=== PATIENT | female | born 1970 | race American Indian/Alaskan Native ===

== ENCOUNTER 2020-08-20 15:17 | Emergency (ER) | payer OTHER ==
[2020-08-20] MEDS ORDERED: ONDANSETRON 4 MG/2 ML INJ IV ONE (18:08)
[2020-08-20] MEDS ORDERED: FAMOTIDINE 20 MG/2 ML INJ IV ONE (18:08)
[2020-08-20] MEDS ORDERED: SODIUM CHLORIDE 0.9% 1000 ML 1,000 ML IV ONE (18:08)
[2020-08-20 18:52] LABS: Hematocrit 37.2 % (30.3-42.9); Hemoglobin 12.3 gm/dl (10.1-14.3); Mean Corpuscular HGB Conc 33 % (30-34); Mean Corpuscular Volume 83 fl (79-97); Platelet Count 250 K/mm3 (140-440); Red Blood Count 4.48 M/mm3 (3.65-5.03)
[2020-08-20 18:56] LABS: Red Cell Distribution Width 24.8 % (13.2-15.2)
[2020-08-20 19:10] LABS: Alanine Aminotransferase 12 units/L (7-56); Albumin 3.7 g/dL (3.9-5); Blood Urea Nitrogen 11 mg/dL (7-17); Calcium 8.9 mg/dL (8.4-10.2); Hemolysis Index 27
[2020-08-20 19:14] LABS: BUN/Creatinine Ratio 16
[2020-08-20 20:40] LABS: Bacteria,Urine 1+ /HPF (Negative); Bilirubin,Urine NEG (Negative); Blood,Urine NEG (Negative); Color,Urine Yellow (Yellow); Mucus,Urine FEW /HPF; Protein,Urine <15 mg/dL mg/dL (Negative); Urobilinogen,Urine < 2.0 mg/dL (<2.0)
[2020-08-20 20:53] LABS: Total Cells Counted 100
[2020-08-20 20:54] LABS: Anisocytosis 2+
[2020-08-20 20:55] LABS: Large Platelets Rare; Platelet Estimate Consistent w Auto
--- NOTE | 2020-08-20 22:21 | Emergency Department Report ---
ED N/V/D HPI - General Chief complaint: Nausea/Vomiting/Diarrhea Stated complaint: DIARRHEA/VOMITING PUI?: No Source: patient Mode of arrival: Ambulatory Limitations: No Limitations - History of Present Illness Initial comments: Patient is a 49-year-old -Armenian female with no past medical history presents to the ED with complaint of acute onset persistent intermittent nausea and vomiting with diarrhea for the last 12 hours, worse in the last 8 hours. Patient states that she has not been able to keep anything down since the onset of the symptoms over 12 hours ago. Patient states that the last meal she consumed was 24 hours ago and it consisted of food that had been laying in the fridge for a few days. Patient states that she tried to drink fluids but was unable to keep anything down because of persistent intermittent nausea and vomi ting and diarrhea. Patient states that she has had multiple episodes of diarrhea and up to 4 or 5 episodes of nausea and vomiting. Patient denies abdominal pain, dizziness, syncope, lightheadedness, chest pain, shortness of breath, dysuria, urinary frequency and urgency, vaginal bleeding, hematemesis, hematochezia, headache, fever, chills, back pain or cough. MD complaint: nausea, vomiting, diarrhea -: Sudden, hour(s) (12) Description of Vomiting: food contents, watery Description of Diarrhea: water Associated Abdominal Pain: No Location: diffuse Radiation: none Severity: moderate Pain Scale: 0 Quality: dull Consistency: intermittent Improves with: none Worsens with: eating, vomiting Context: possible food poisoning Associated Symptoms: denies other symptoms, myalgias, loss of appetite, malaise, nausea/vomiting. denies: chest pain, cough, diaphoresis, fever/chills, headaches, rash, dysuria, shortness of breath, syncope, weakness, other - Related Data Previous Rx's Medication Instructions Recorded Last Taken Type Dicyclomine [Bentyl] 20 mg PO Q6H PRN #30 tablet 08/20/20 Unknown Rx Famotidine [Pepcid] 20 mg PO BID #30 tablet 08/20/20 Unknown Rx Ondansetron [Zofran Odt] 4 mg PO Q8HR PRN #20 tab.rapdis 08/20/20 Unknown Rx Allergies Allergy/AdvReac Type Severity Reaction Status Date / Time No Known Allergies Allergy Unverified 10/26/15 20:53 ED Review of Systems ROS: Stated complaint: DIARRHEA/VOMITING Other details as noted in HPI Constitutional: denies: chills, fever Eyes: denies: eye pain, eye discharge, vision change ENT: denies: ear pain, throat pain Respiratory: denies: cough, shortness of breath, wheezing Cardiovascular: denies: chest pain, palpitations Endocrine: no symptoms reported Gastrointestinal: nausea, vomiting, diarrhea. denies: abdominal pain Genitourinary: denies: urgency, dysuria, discharge Musculoskeletal: denies: back pain, joint swelling, arthralgia Skin: denies: rash, lesions Neurological: denies: headache, weakness, paresthesias Psychiatric: denies: anxiety, depression Hematological/Lymphatic: denies: easy bleeding, easy bruising ED Past Medical Hx - Past Medical History Previous Medical History?: No Additional medical history: gallstones - Surgical History Additional Surgical History: GB - Social History Smoking Status: Never Smoker Substance Use Type: None - Medications Home Medications: Home Medications Medication Instructions Recorded Confirmed Last Taken Type Dicyclomine [Bentyl] 20 mg PO Q6H PRN #30 tablet 08/20/20 Unknown Rx Famotidine [Pepcid] 20 mg PO BID #30 tablet 08/20/20 Unknown Rx Ondansetron [Zofran Odt] 4 mg PO Q8HR PRN #20 tab.rapdis 08/20/20 Unknown Rx ED Physical Exam - General Limitations: No Limitations General appearance: alert, in no apparent distress - Head Head exam: Present: atraumatic, normocephalic, normal inspection - Eye Eye exam: Present: normal appearance, PERRL, EOMI Pupils: Present: normal accommodation - ENT ENT exam: Present: normal exam, normal orophraynx, mucous membranes moist, TM's normal bilaterally, normal external ear exam - Neck Neck exam: Present: normal inspection, full ROM - Respiratory Respiratory exam: Present: normal lung sounds bilaterally. Absent: respiratory distress, wheezes, rales, chest wall tenderness, decreased breath sounds - Cardiovascular Cardiovascular Exam: Present: regular rate, normal rhythm, normal heart sounds. Absent: systolic murmur, diastolic murmur, rubs, gallop - GI/Abdominal GI/Abdominal exam: Present: soft, normal bowel sounds, hyperactive bowel sounds. Absent: tenderness, guarding - Extremities Exam Extremities exam: Present: normal inspection, full ROM, normal capillary refill - Back Exam Back exam: Present: normal inspection, full ROM. Absent: tenderness, CVA tenderness (R), CVA tenderness (L), muscle spasm, paraspinal tenderness, vertebral tenderness, rash noted - Neurological Exam Neurological exam: Present: alert, oriented X3, CN II-XII intact, normal gait, reflexes normal - Psychiatric Psychiatric exam: Present: normal affect, normal mood - Skin Skin exam: Present: warm, dry, intact, normal color. Absent: rash ED Course Vital Signs 08/20/20 15:52 Temperature 98.8 F Pulse Rate 87 Respiratory 17 Rate Blood Pressure 175/93 [Right] O2 Sat by Pulse 97 Oximetry ED Medical Decision Making - Lab Data Result diagrams: 08/20/20 18:10 08/20/20 18:10 - Medical Decision Making This is a 49-year-old -Armenian female with no past medical history presents to the ED with complaint of acute onset persistent intermittent nausea and vomiting with diarrhea for the last 12 hours, worse in the last 8 hours. Patient states that she has not been able to keep anything down since the onset of the symptoms over 12 hours ago. Patient states that the last meal she consumed was 24 hours ago and it consisted of food that had been laying in the fridge for a few days. Patient states that she tried to drink fluids but was unable to keep anything down because of persistent intermittent nausea and vomiting and diarrhea. Patient states that she has had multiple episodes of d iarrhea and up to 4 or 5 episodes of nausea and vomiting. In the ED, patient is alert and oriented x3 and is not in distress. Lab test results were reviewed and are all nonactionable except for mild acute hyponatremia of 131 mmol/L and mild urinary tract infection characterized by 1+ bacteria, >10 WBCs and large leukocyte esterase levels in urinalysis. Patient was treated in the ED with antiemetics, antacids and also given normal saline 1 L IV bolus x1. On reevaluation, patient's nausea and vomiting resolved in the ED, patient has not had any nausea or vomiting or diarrhea while in the ED. Patient is hemodynamically stable, and based on history and physical exam findings as well as lab test results, patient's symptoms are likely due to a viral gastroenteritis versus GERD. Patient was therefore discharged home on medications and advised to follow-up with her primary care physician in 5 to 7 days for reevaluation. Patient was also advised to maintain a clear liquid diet for 12 to 24 hours while taking medications for nausea and vomiting. Patient was otherwise advised return to the ED immediately if symptoms get worse. - Differential Diagnosis Gastroenteritis; dehydration; UTI; GERD; gastritis; Critical care attestation.: If time is entered above; I have spent that time in minutes in the direct care of this critically ill patient, excluding procedure time. ED Disposition Clinical Impression: Viral gastroenteritis, Nausea, vomiting and diarrhea, Acute hyponatremia, Acute urinary tract infection Disposition: TO HOME OR SELFCARE Is pt being admited?: No Does the pt Need Aspirin: No Condition: Stable Instructions: Viral Gastroenteritis, Adult, [id number], Nausea and Vomiting, Adult, [id number], Urinary Tract Infection, Adult, Vids-[id number]-Asfh, Diarrhea, Adult, Cfpe-[id number] Additional Instructions: All lab test results were reviewed and are all nonactionable except for mild hyponatremia and mild urinary tract infection. Your symptoms are likely due to food poisoning or viral gastroenteritis. Therefore maintain a clear liquid diet for 12 to 24 hours, drink plenty of fluids, take medication as advised and fol low-up with your primary care physician in 3 to 5 days for reevaluation. Return to the ED immediately if symptoms get worse. Prescriptions: Dicyclomine [Bentyl] 20 mg PO Q6H PRN #30 tablet PRN Reason: Abdominal pain Famotidine [Pepcid] 20 mg PO BID #30 tablet Ondansetron [Zofran Odt] 4 mg PO Q8HR PRN #20 tab.rapdis PRN Reason: Nausea Referrals: [facility] [Provider Group] - 3-5 Days Forms: Work/School Release Form(ED) Time of Disposition: 22:25 Print Language: OCCITAN
[2020-08-21 01:43] VITALS: BP 167/74
== END 2020-08-20 23:35 | disposition home or self-care (01) ==
LOC: ED 15:17
DX: A08.4 Viral intestinal infection, unspecified (principal); N39.0 Urinary tract infection, site not specified; E87.1 Hypo-osmolality and hyponatremia; R19.7 Diarrhea, unspecified; R11.2 Nausea with vomiting, unspecified; Z98.890 Other specified postprocedural states; Z79.899 Other long term (current) drug therapy
CPT/HCPCS: 36415; 80053; 81001; 83690; 85007; 85025; 87086; 96361; 96374; 96375; 99283; J2405; J7030

== ENCOUNTER 2021-07-22 04:31 | Emergency (ER) | payer OTHER ==
--- NOTE | 2021-07-22 07:42 | Emergency Department Report ---
ED ENT HPI - General Chief complaint: Dental/Oral Stated complaint: FACE SWOLLEN Time Seen by Provider: 07/22/21 07:31 Source: patient Mode of arrival: Ambulatory Limitations: No Limitations - History of Present Illness Initial comments: This is a pleasant 30-year-old female who presents the emergency department chief complaint of right-sided upper and lower dental pain and facial swelling has been ongoing for the past few days. She has been taking [id number] naproxen with only minimal relief in her symptoms. She denies any associated fever, chills, night sweats, headache, dizziness, blurry vision, nausea,, diarrhea, chest pain, shortness of breath, weakness or any other associated symptoms. Reports the pain is not allowing her to sleep. She has tried to get into a dentist but has been unsuccessful. - Related Data Previous Rx's Medication Instructions Recorded Last Taken Type Dicyclomine [Bentyl] 20 mg PO Q6H PRN #30 tablet 08/20/20 Unknown Rx Famotidine [Pepcid] 20 mg PO BID #30 tablet 08/20/20 Unknown Rx Ondansetron [Zofran Odt] 4 mg PO Q8HR PRN #20 tab.rapdis 08/20/20 Unknown Rx Acetaminophen with Codeine 1 each PO Q6HR #12 07/22/21 Unknown Rx [Acetaminophen-Codeine #4 TAB] Penicillin V Potassium 500 mg PO Q6HR #40 07/22/21 Unknown Rx Allergies Allergy/AdvReac Type Severity Reaction Status Date / Time No Known Allergies Allergy Unverified 10/26/15 20:53 ED Dental HPI - General Chief complaint: Dental/Oral Stated complaint: FACE SWOLLEN Time Seen by Provider: 07/22/21 07:31 Source: patient Mode of arrival: Ambulatory Limitations: No Limitations - Related Data Previous Rx's Medication Instructions Recorded Last Taken Type Dicyclomine [Bentyl] 20 mg PO Q6H PRN #30 tablet 08/20/20 Unknown Rx Famotidine [Pepcid] 20 mg PO BID #30 tablet 08/20/20 Unknown Rx Ondansetron [Zofran Odt] 4 mg PO Q8HR PRN #20 tab.rapdis 08/20/20 Unknown Rx Acetaminophen with Codeine 1 each PO Q6HR #12 07/22/21 Unknown Rx [Acetaminophen-Codeine #4 TAB] Penicillin V Potassium 500 mg PO Q6HR #40 07/22/21 Unknown Rx Allergies Allergy/AdvReac Type Severity Reaction Status Date / Time No Known Allergies Allergy Unverified 10/26/15 20:53 ED Review of Systems ROS: Stated complaint: FACE SWOLLEN Other details as noted in HPI Comment: All other systems reviewed and negative Constitutional: denies: chills, fever Eyes: denies: eye pain, eye discharge, vision change ENT: as per HPI, dental pain. denies: ear pain, throat pain Respiratory: denies: cough, shortness of breath, wheezing Cardiovascular: denies: chest pain, palpitations Endocrine: no symptoms reported Gastrointestinal: denies: abdominal pain, nausea, diarrhea Genitourinary: denies: urgency, dysuria, discharge Musculoskeletal: denies: back pain, joint swelling, arthralgia Skin: denies: rash, lesions Neurological: denies: headache, weakness, paresthesias Psychiatric: denies: anxiety, depression Hematological/Lymphatic: denies: easy bleeding, easy bruising ED Past Medical Hx - Past Medical History Additional medical history: gallstones - Surgical History Additional Surgical History: GB - Social History Smoking Status: Never Smoker Substance Use Type: None - Medications Home Medications: Home Medications Medication Instructions Recorded Confirmed Last Taken Type Dicyclomine [Bentyl] 20 mg PO Q6H PRN #30 tablet 08/20/20 Unknown Rx Famotidine [Pepcid] 20 mg PO BID #30 tablet 08/20/20 Unknown Rx Ondansetron [Zofran Odt] 4 mg PO Q8HR PRN #20 tab.rapdis 08/20/20 Unknown Rx Acetaminophen with Codeine 1 each PO Q6HR #12 07/22/21 Unknown Rx [Acetaminophen-Codeine #4 TAB] Penicillin V Potassium 500 mg PO Q6HR #40 07/22/21 Unknown Rx ED Physical Exam - General Limitations: No Limitations General appearance: alert, in no apparent distress - Head Head exam: Present: atraumatic, normocephalic - Eye Eye exam: Present: normal appearance, PERRL, EOMI Pupils: Present: normal accommodation - ENT ENT exam: Present: normal exam, normal orophraynx, mucous membranes moist, other (No obvious abscess, no trismus. No peritonsillar bulging, retropharyngeal bulging or to elevation. No drooling or dysphonia) - Neck Neck exam: Present: normal inspection. Absent: tenderness, meningismus - Respiratory Respiratory exam: Present: normal lung sounds bilaterally. Absent: respiratory distress - Cardiovascular Cardiovascular Exam: Present: regular rate, normal rhythm. Absent: systolic murmur, diastolic murmur, rubs, gallop - GI/Abdominal GI/Abdominal exam: Present: soft, normal bowel sounds. Absent: distended, tenderness, guarding, rebound, rigid - Extremities Exam Extremities exam: Present: normal inspection, full ROM, normal capillary refill. Absent: tenderness, calf tenderness - Back Exam Back exam: Present: normal inspection, full ROM. Absent: tenderness, CVA tenderness (R), CVA tenderness (L), muscle spasm - Neurological Exam Neurological exam: Present: alert, oriented X3 - Psychiatric Psychiatric exam: Present: normal affect, normal mood - Skin Skin exam: Present: warm, dry, intact, normal color. Absent: rash ED Course Vital Signs 07/22/21 07/22/21 04:38 04:40 Temperature 98.4 F Pulse Rate 92 H Respiratory 16 16 Rate Blood Pressure 145/73 O2 Sat by Pulse 100 Oximetry ED Medical Decision Making - Medical Decision Making Patient nontoxic no acute distress. Vital signs are stable. Exam is consistent with dental infection. No obvious abscess seen. Patient educated that the measures taken in the ER including antibiotics and pain medication are temporary and is very important she follows up with a dentist. I will provide her with a list of low-cost sliding scale dental options. Return the emerge part any change or worsening symptoms. She verbalized understand the diagnosis, treatment plan and follow-up instructions all her questions were answered. - Differential Diagnosis Dental abscess, dental infection, dental caries Critical care attestation.: If time is entered above; I have spent that time in minutes in the direct care of this critically ill patient, excluding procedure time. ED Disposition Clinical Impression: Pain, dental, Dental infection Disposition: 01 HOME / SELF CARE / HOMELESS Is pt being admited?: No Condition: Stable Instructions: Dental Abscess Prescriptions: Acetaminophen with Codeine [Acetaminophen-Codeine #4 TAB] 1 each PO Q6HR #12 Penicillin V Potassium 500 mg PO Q6HR #40 Referrals: [facility] [Outside] - 3-5 Days [facility] [Outside] - 3-5 Days [facility] [Provider Group] - 3-5 Days Time of Disposition: 07:41
[2021-07-22 07:56] VITALS: BP 179/90
== END 2021-07-22 07:56 | disposition home or self-care (01) ==
LOC: ED 04:31
DX: K04.7 Periapical abscess without sinus (principal)
CPT/HCPCS: 99282

== ENCOUNTER 2021-09-24 13:33 | Emergency (ER) | payer OTHER ==
[2021-09-24 16:35] LABS: Basophils % (Auto) 0.6 % (0.0-1.8); Eosinophils # (Auto) 0.1 K/mm3 (0.0-0.4); Hematocrit 37.1 % (30.3-42.9); Lymphocytes % (Auto) 29.6 % (13.4-35.0); Mean Corpuscular HGB Conc 32 % (30-34); Mean Corpuscular Volume 89 fl (79-97); Monocytes # (Auto) 0.2 K/mm3 (0.0-0.8); Platelet Count 235 K/mm3 (140-440); Red Blood Count 4.16 M/mm3 (3.65-5.03); Red Cell Distribution Width 14.5 % (13.2-15.2)
[2021-09-24 16:49] LABS: Alanine Aminotransferase 25 units/L (7-56); Albumin 4.1 g/dL (3.9-5); BUN/Creatinine Ratio 8; Blood Urea Nitrogen 6 mg/dL (7-17); Calcium 9.5 mg/dL (8.4-10.2); Hemolysis Index 7
[2021-09-24 16:54] LABS: INR 0.91 (0.87-1.13)
[2021-09-24 16:55] LABS: Partial Thromboplastin Time 26.3 Sec. (24.2-36.6)
--- NOTE | 2021-09-24 22:04 | Emergency Department Report ---
ED General Adult HPI - General Chief complaint: Dizziness Stated complaint: HBP/HIGH GLUCOSE Time Seen by Provider: 09/24/21 21:43 Source: patient Mode of arrival: Ambulatory Limitations: No Limitations - History of Present Illness Initial comments: 50-year-old female that was sent in by the primary doctor due to elevated D- dimer that were checked due to shortness of breath and dizziness. Patient reports some shortness of breath just walking from one room to the other. She also reports poor blood circulation on her left and right lower leg. No specific leg pain reported. No other modifying or associated factors. Severity scale (0 -10): 0 - Related Data Previous Rx's Medication Instructions Recorded Last Taken Type Dicyclomine [Bentyl] 20 mg PO Q6H PRN #30 tablet 08/20/20 Unknown Rx Famotidine [Pepcid] 20 mg PO BID #30 tablet 08/20/20 Unknown Rx Ondansetron [Zofran Odt] 4 mg PO Q8HR PRN #20 tab.rapdis 08/20/20 Unknown Rx Acetaminophen with Codeine 1 each PO Q6HR #12 07/22/21 Unknown Rx [Acetaminophen-Codeine #4 TAB] Penicillin V Potassium 500 mg PO Q6HR #40 07/22/21 Unknown Rx Allergies Allergy/AdvReac Type Severity Reaction Status Date / Time No Known Allergies Allergy Unverified 10/26/15 20:53 ED Review of Systems ROS: Stated complaint: HBP/HIGH GLUCOSE Other details as noted in HPI Comment: All other systems reviewed and negative Respiratory: shortness of breath, SOB with exertion. denies: wheezing ED Past Medical Hx - Past Medical History Hx Hypertension: Yes Hx Diabetes: Yes Additional medical history: gallstones - Surgical History Additional Surgical History: GB - Social History Smoking Status: Never Smoker Substance Use Type: None - Medications Home Medications: Home Medications Medication Instructions Recorded Confirmed Last Taken Type Dicyclomine [Bentyl] 20 mg PO Q6H PRN #30 tablet 08/20/20 Unknown Rx Famotidine [Pepcid] 20 mg PO BID #30 tablet 08/20/20 Unknown Rx Ondansetron [Zofran Odt] 4 mg PO Q8HR PRN #20 tab.rapdis 08/20/20 Unknown Rx Acetaminophen with Codeine 1 each PO Q6HR #12 07/22/21 Unknown Rx [Acetaminophen-Codeine #4 TAB] Penicillin V Potassium 500 mg PO Q6HR #40 07/22/21 Unknown Rx ED Physical Exam - General Limitations: No Limitations General appearance: alert, in no apparent distress - Head Head exam: Present: normal inspection - Eye Eye exam: Present: normal appearance - ENT ENT exam: Present: normal exam, normal orophraynx, mucous membranes moist - Neck Neck exam: Present: normal inspection, full ROM. Absent: tenderness - Respiratory Respiratory exam: Present: normal lung sounds bilaterally. Absent: respiratory distress, accessory muscle use - Cardiovascular Cardiovascular Exam: Present: regular rate, normal rhythm, normal heart sounds - GI/Abdominal GI/Abdominal exam: Present: soft, normal bowel sounds. Absent: distended, tenderness - Extremities Exam Extremities exam: Present: normal inspection, full ROM, normal capillary refill. Absent: tenderness, pedal edema, joint swelling - Back Exam Back exam: Present: normal inspection, full ROM. Absent: tenderness, CVA tenderness (R), CVA tenderness (L) - Neurological Exam Neurological exam: Present: alert, oriented X3 - Psychiatric Psychiatric exam: Present: normal affect, normal mood ED Course Vital Signs 09/24/21 09/24/21 14:04 22:47 Temperature 97.9 F 97.8 F Pulse Rate 73 58 L Respiratory 20 8 L Rate Blood Pressure 111/68 151/81 [Left] O2 Sat by Pulse 99 100 Oximetry - Reevaluation(s) Reevaluation #1: 09/24/21 22:02s Sent in by PCP with elevated d-dimer from the office due to c/o sob -- noted with unremarkable exam so will go ahead and repeat this labs d-dimer and routine labs such as CBC. CMP and UA for any infectious process or electrolyte abnormality. 09/24/21 22:05 If D-dimer is elevated we will go ahead and get a CT scan of the chest with contrast PE protocol Reevaluation #2: 09/24/21 23:11 Noted with hyperglycemia of 381 mg/dl so given insulin 5 units IV and SQ with iVF hydration 1L bolus x 1 -- which will take care of the mild hyponatremia ED Medical Decision Making - Lab Data Result diagrams: 09/24/21 16:14 09/24/21 16:14 Critical care attestation.: If time is entered above; I have spent that time in minutes in the direct care of this critically ill patient, excluding procedure time. ED Disposition Clinical Impression: Dizziness, Hyponatremia, Hyperglycemia Disposition: 01 HOME / SELF CARE / HOMELESS Is pt being admited?: No Does the pt Need Aspirin: No Condition: Stable Instructions: Preventing Type 2 Diabetes Mellitus, Hyperglycemia, [id number], Dizziness, Dvyt-xu-[id number] Additional Instructions: She had D-dimer rechecked and it was normal so no possibility of having blood clots in your lungs or your legs. Continue to take your diabetes medication as prescribed to help your diabetes Increase your daily fluid to help your hydration Please call and follow-up with your primary doctor in the next 3 to 5 days for p key Please do not hesitate to call or return to emergency room if your symptoms worsen Referrals: ROSALIE KEY [Primary Care Provider] - 3-5 Days Time of Disposition: 23:42
[2021-09-24] MEDS: INSULIN REGULAR, HUMAN 100 UNITS/1 ML SUB-Q ONE (23:25)
[2021-09-24] MEDS: INSULIN REGULAR, HUMAN 100 UNITS/1 ML IV ONE (23:25)
[2021-09-24] MEDS: SODIUM CHLORIDE 0.9% 1000 ML 1,000 ML IV ONE (23:25)
[2021-09-25 00:16] VITALS: BP 167/44
--- NOTE | 2021-09-26 18:10 | Electrocardiograph Report ---
[facility] Test Date: 2021-09-24 Test Time: 14:16:30 Pat Name: GIOVANI GOSS Department: Room: Gender: F Technical Support Technician: : 1970 Requested By: ZAC RAVI Order Number: [id number] Reading MD: Eda Goss Measurements Intervals [place] Rate: 61 P: 54 MO: 160 QRS: -26 QRSD: 87 T: 6 QT: 402 QTc: 406 Interpretive Statements Sinus rhythm No previous ECG available for comparison Electronically Signed On 09-26-2021 18:10:03 EDT by Eda Goss
== END 2021-09-25 00:16 | disposition home or self-care (01) ==
LOC: ED 13:33
DX: R42 Dizziness and giddiness (principal); E11.65 Type 2 diabetes mellitus with hyperglycemia; I10 Essential (primary) hypertension; Z79.899 Other long term (current) drug therapy
CPT/HCPCS: 36415; 80053; 85025; 85379; 85610; 85730; 93005; 96361; 96372; 96374; 99283; J7030; Q9967; J1815